=== PATIENT | female | born 1960 | race Caucasian/White ===

== ENCOUNTER 2019-08-30 16:44 | Emergency (ER) | payer MEDICARE, SELFPAY | END 2019-08-30 18:26 | disposition left against medical advice (07) | LOC: ER 20:02 | PROVIDERS: Emergency Provider Family Medicine; Family Provider Internal Medicine | DX: Z53.21 Procedure and treatment not carried out due to patient leaving prior to being seen by health care provider (principal) | CPT/HCPCS: 99281 ==

== ENCOUNTER 2019-10-23 08:43 | Emergency (ER) | payer MEDICARE, SELFPAY ==
[2019-10-23 08:47] VITALS: BP 145/91; PULSE 80; RESP 18; TEMP 36.8; O2SAT 90; BMI 25.8
--- NOTE | 2019-10-23 09:03 | XR_ITS ---
WS: [id number] XR chest 1V portable [id number] REASON FOR EXAM: sob FINDINGS: Hyper aerated lungs are seen bilaterally. The heart is not enlarged There are scattered granulomas seen. No definite pneumonia, pleural effusion, pulmonary edema, or mass effect. XR/XR chest 1V portable [id number] IMPRESSION: Chronic obstructive pulmonary disease.
--- NOTE | 2019-10-23 09:03 | W.ED.SOB ---
HPI - SOB/Dyspnea General: Chief Complaint: Shortness of Breath/Dyspnea Stated Complaint: SOB Time Seen by Provider: 10/23/19 09:02 History of Present Illness: HPI Narrative: Patient is a 59-year-old female comes to the ED with shortness of breath. Patient has a PMH of hypertension and also has been smoking cigarettes for 40 years. Patient was seen by her PCP on October 20 and was put on prednisone and doxycycline and diagnosed with bronchitis. She is still taking her prednisone and doxycycline and states last night she started feeling an increase in shortness of breath. She is complaining of a productive cough with sputum color being yellow and sometimes clear. She also states she had a objective fever last night. Patient also has an inhaler (Xopenex) that she uses as needed. Associated symptoms: Reports fever(s); Deny abdominal pain, chest pain, nausea, orthopnea, palpitations or vomiting Review of Systems Const: Reports: fever; Denies: chills or fatigue Eyes: Denies: change in vision or eye discomfort ENMT: Denies: throat pain, painful swallowing, nasal discharge or nasal congestion Card: Denies: chest pain, palpitations, edema, swelling of feet/ankles, shortness of breath on exertion or shortness of breath when lying down Resp: Reports: shortness of breath and productive cough; Denies: non-productive cough GI: Denies: abdominal pain, nausea, vomiting, diarrhea, constipation or blood in stool : Denies: flank pain, painful urination or blood in urine Musc: Denies: neck pain, back pain or extremity swelling Skin/Breast: Denies: rash or new lesion Neuro: Denies: headache, numbness in extremities or weakness in extremities [facility], [facility] ED PFSH: Social History Smoking and tobacco status: current every day smoker Physical Exam Const: COMMON NORMALS: oriented x3 HENMT: COMMON NORMALS: normocephalic HEAD & SCALP: normocephalic MOUTH: oral and palatal mucosa normal THROAT: posterior oropharynx normal and uvula midline Neck/C-Spine: COMMON NORMALS: supple GENERAL: Yes normal visual inspection Resp: COMMON NORMALS: normal respiratory effort, no retractions and no use of accessory muscles AUSCULTATION: diminished lung sounds (bases) bilateral Cardio: COMMON NORMALS: regular rate, regular rhythm, S1 normal heart sound, S2 normal heart sound, no gallops, no clicks, no murmurs and peripheral pulses 2+ throughout RATE: regular rate RHYTHM: regular rhythm HEART SOUNDS: S1 normal and S2 normal PERIPHERAL PULSES: pulses 2+ throughout GI: COMMON NORMALS: normal to inspection, nondistended, normoactive bowel sounds, soft to palpation, non-tender and no masses PALPATION: Yes soft : COMMON NORMALS: Yes no CVA tenderness BLADDER/KIDNEY EXAM: Yes no CVA tenderness Back/Pelvis: COMMON NORMALS: no CVA tenderness Extremity: COMMON NORMALS: normal to inspection Neuro: COMMON NORMALS: oriented x3 and moves all extremities Skin: COMMON NORMALS: no rashes or lesions noted GENERAL SKIN EXAM: no rashes or lesions noted and dry skin Course ED course: I discussed with patient about the possibility of patient having COPD. I told her to continue taking her antibiotic and prednisone as prescribed. I told her to follow-up with her PCP in 3 days for reevaluation to discuss COPD medication management. I discussed with her that O2 sat goal is 88-92% for COPD patient. I also discussed with patient the importance of her quitting smoking. I told her to return to the ED if symptoms worsen. Patient understood and agreed with plan. I discussed plan with Dr. Javier. Vital Signs: Vital signs: Vital Signs Temperature 98.3 F 10/23/19 08:47 Pulse Rate 70 10/23/19 12:49 Respiratory Rate 18 10/23/19 12:49 Blood Pressure 145/87 10/23/19 12:49 Pulse Oximetry 87 L 10/23/19 12:49 MDM - SOB/Dyspnea Lab Data: Attestation: I reviewed the patient's lab results. Labs: Lab Results 10/23/19 10/23/19 10/23/19 Range/Units 09:25 09:25 09:25 WBC 5.6 (4.0-10.0) 10^3/ uL RBC 4.73 (4.1-5.3) 10^6/u L Hgb 13.6 (11.5-15.3) g/dL Hct 42.2 (37.0-47.0) % MCV 89.2 (81-99) fL MCH 28.8 (28.0-34.0) pg MCHC 32.2 (30.0-36.0) g/dL RDW 13.3 (12.1-15.1) % Plt Count 179 (130-400) 10^3/c mm MPV 10.2 (7.4-10.4) fL Neut % (Auto) 58.9 % Lymph % (Auto) 23.3 % Ellis % (Auto) 17.4 % Eos % (Auto) 0.0 % Baso % (Auto) 0.2 % Neut # (Auto) 3.3 (1.8-7.7) 10^3/u L Lymph # (Auto) 1.3 (0.8-4.8) 10^3/u L Ellis # (Auto) 1.0 H (0.2-0.9) 10^3/u L Eos # (Auto) 0.0 (0.0-0.8) 10^3/u L Baso # (Auto) 0.0 (0.0-0.1) 10^3/u L Nucleated RBC % (a uto) 0 % Nucleated RBCs # 0.0 /100WBC Sodium 136 (136-145) mmol/L Potassium 3.8 (3.5-5.1) mmol/L Chloride 97 L (98-107) mmol/L Carbon Dioxide 26 (22-29) mmol/L Anion Gap 16.8 (5-19) BUN 12 (6-20) mg/dL Creatinine 0.6 (0.5-0.9) mg/dL GFR Calculation 103.0 (90-130) mL/min Glucose 96 (65-115) mg/dL Calcium 9.4 (8.5-10.5) mg/dL Total Bilirubin 0.3 (0.15-1.2) mg/dL AST 14 (0-32) U/L ALT < 5 (0-33) U/L Alkaline Phosphata se 52 (35-105) IU/L Troponin T Baselin e 6 (0-10) ng/mL Troponin T [address] [place] (0-10) ng/mL Delta Troponin T (0-10) ABS# Total Protein 6.6 (6.6-8.7) g/dL Albumin 4.2 (3.5-5.2) g/dL Globulin 2.4 (1.3-4.6) g/dL 10/23/19 Range/Units 11:10 WBC (4.0-10.0) 10^3/ uL RBC (4.1-5.3) 10^6/u L Hgb (11.5-15.3) g/dL Hct (37.0-47.0) % MCV (81-99) fL MCH (28.0-34.0) pg MCHC (30.0-36.0) g/dL RDW (12.1-15.1) % Plt Count (130-400) 10^3/c mm MPV (7.4-10.4) fL Neut % (Auto) % Lymph % (Auto) % Ellis % (Auto) % Eos % (Auto) % Baso % (Auto) % Neut # (Auto) (1.8-7.7) 10^3/u L Lymph # (Auto) (0.8-4.8) 10^3/u L Ellis # (Auto) (0.2-0.9) 10^3/u L Eos # (Auto) (0.0-0.8) 10^3/u L Baso # (Auto) (0.0-0.1) 10^3/u L Nucleated RBC % (a uto) % Nucleated RBCs # /100WBC Sodium (136-145) mmol/L Potassium (3.5-5.1) mmol/L Chloride (98-107) mmol/L Carbon Dioxide (22-29) mmol/L Anion Gap (5-19) BUN (6-20) mg/dL Creatinine (0.5-0.9) mg/dL GFR Calculation (90-130) mL/min Glucose (65-115) mg/dL Calcium (8.5-10.5) mg/dL Total Bilirubin (0.15-1.2) mg/dL AST (0-32) U/L ALT (0-33) U/L Alkaline Phosphata se (35-105) IU/L Troponin T Baselin e (0-10) ng/mL Troponin T [address] [place] 6.16 (0-10) ng/mL Delta Troponin T 0.16 (0-10) ABS# Total Protein (6.6-8.7) g/dL Albumin (3.5-5.2) g/dL Globulin (1.3-4.6) g/dL Imaging Data^: CXR: Attestation: I personally reviewed and interpreted this imaging study as follows: Radiologist's impression: [address] [address] XRay Report Signed Patient: Clare Campos Unit #: [id number] : 1960 Age/Sex: 59 / F ADM Date: 10/23/19 Loc: ER Room/Bed: Attending Dr: Ordering Provider/Ordering MD: Miguel Chaudhry Date of Service: 10/23/19 Procedure(s): XR chest 1V portable [id number] Accession Number(s): [id number] Report Number: [id number] WS: [id number] XR chest 1V portable [id number] REASON FOR EXAM: sob FINDINGS: Hyper aerated lungs are seen bilaterally. The heart is not enlarged There are scattered granulomas seen. No definite pneumonia, pleural effusion, pulmonary edema, or mass effect. XR/XR chest 1V portable [id number] IMPRESSION: Chronic obstructive pulmonary disease. Dictated By: Neto Pete DO Signed By: Neto Pete DO Signed Date/Time: 10/23/19913 DD/ 2 EKG Data^: EKG 1: Attestation: I personally reviewed and interpreted this EKG as follows: EKG Interpretation Date: 10/23/19 Interpretation: Normal sinus rhythm, 85 beats per minute, no ST segment elevation or depression seen. P waves present. Computer Generated Interpretation: Normal sinus rhythm 85 bpm Discharge Plan Discharge Patient Disposition: Home, Self-Care Clinical Impression: Dyspnea Qualifiers: Dyspnea type: shortness of breath Qualified Code(s): R06.02 - Shortness of breath COPD (chronic obstructive pulmonary disease) Qualifiers: COPD type: chronic bronchitis Chronic bronchitis type: unspecified Qualified Code(s): J42 - Unspecified chronic bronchitis Condition: Stable Prescriptions: No Action prednisone 10 mg tablet See Rx Instructions .ROUTE .COMPLEX RF: 0 lisinopril 20 mg tablet 40 mg PO DAILY RF: 0 metoprolol succinate 25 mg tablet extended release 24 hr 50 mg PO DAILY RF: 0 doxycycline hyclate 100 mg tablet 100 mg PO BID RF: 0 Xopenex HFA 45 mcg/actuation HFA aerosol inhaler 2 puff INHALATION Q4H PRN (Reason: Shortness Of Breath) RF: 0 Calcium 500 + D 500 mg(1,250mg) -200 unit Tablet 1 tab PO DAILY RF: 0 potassium gluconate 600 mg (99 mg) Tablet 600 mg PO DAILY RF: 0 [place]-3 350 mg-235 mg- 90 mg-597 mg Capsule,Delayed Release(Dr/Ec) 1 cap PO DAILY RF: 0 Vitamin C 1 tab PO DAILY RF: 0 Discharge Orders: Discharge Order (Routine); Ordered 10/23/19 Ordered By: Miguel Chaudhry Referrals: Hugo Paulson MD [Family Provider] - Discharge Diet: Regular Discharge Activity: Increase activity as tolerated Patient Instructions: Chronic Obstructive Pulmonary Disease (ED) Activity Restrictions/Additional Instructions: Follow-up with your PCP in 3 to 5 days for reevaluation. Continue taking the prescribed prednisone and doxycycline. Continue using your inhaler open (Xopenex) as needed for shortness of breath. Drink plenty fluids and stay hydrated. You can take Tylenol or ibuprofen if you have any fevers. Discussed with your PCP about possible COPD diagnosis and management. Discharge Date/Time: 10/23/19 12:49 Coding Level of Care Code ED Paving Supervisor for Rico Fwd Exam Comprehensive
--- NOTE | 2019-10-23 09:07 | ECG_ITS ---
Measurements Intervals [place] Rate: 85 P: 65 IN: 147 QRS: 43 QRSD: 95 T: 50 QT: 361 QTc: 431 SINUS RHYTHM No previous ECG available for comparison Electronically Signed On 10-23-2019 20:23:16 EXTERN by Raven Frost M.D. [email or web address]
[2019-10-23 09:40] LABS: Basophils % 0.2 %; Hematocrit 42.2 % (37.0-47.0); Hemoglobin 13.6 g/dL (11.5-15.3); Lymphocytes # 1.3 10^3/uL (0.8-4.8); Lymphocytes % 23.3 %; Mean Corpuscular HGB Conc 32.2 g/dL (30.0-36.0); Mean Corpuscular Hemoglobin 28.8 pg (28.0-34.0); Mean Corpuscular Volume 89.2 fL (81-99); Mean Platelet Volume 10.2 fL (7.4-10.4); Monocytes % 17.4 %; Neutrophils # 3.3 10^3/uL (1.8-7.7); Neutrophils % 58.9 %; Nucleated Red Blood Cells % 0 %; Platelet Count 179 10^3/cmm (130-400); Red Blood Count 4.73 10^6/uL (4.1-5.3); Red Cell Distribution Width 13.3 % (12.1-15.1); White Blood Count 5.6 10^3/uL (4.0-10.0)
[2019-10-23 09:48] LABS: Alanine Aminotransferase < 5 U/L (0-33); Albumin Level 4.2 g/dL (3.5-5.2); Alkaline Phosphatase 52 IU/L (35-105); Anion Gap 16.8 (5-19); Aspartate Amino Transferase 14 U/L (0-32); Blood Urea Nitrogen 12 mg/dL (6-20); Calcium 9.4 mg/dL (8.5-10.5); Carbon Dioxide 26 mmol/L (22-29); Chloride 97 mmol/L (98-107); Globulin 2.4 g/dL (1.3-4.6); Glucose 96 mg/dL (65-115); Potassium 3.8 mmol/L (3.5-5.1); Sodium 136 mmol/L (136-145); Total Bilirubin 0.3 mg/dL (0.15-1.2); Total Protein 6.6 g/dL (6.6-8.7)
[2019-10-23 09:50] LABS: Troponin(5th) Baseline 6 ng/mL (0-10)
[2019-10-23] MEDS: ipratropium-albuterol 3 mL Neb INHALATION (11:00)
--- NOTE | 2019-10-23 11:07 | ECG_ITS ---
Measurements Intervals [place] Rate: 82 P: 77 MO: 146 QRS: 58 QRSD: 89 T: 56 QT: 366 QTc: 430 SINUS RHYTHM INTERPRETATION BASED ON A DEFAULT AGE OF 40 YEARS No previous ECG available for comparison Electronically Signed On 10-23-2019 20:30:08 PHP CONSULTANT by Raven Frost M.D. [email or web address]
--- NOTE | 2019-10-23 11:07 | PC.NURSE ---
Patient requesting to ambulate to restroom.
--- NOTE | 2019-10-23 11:16 | PC.NURSE ---
PHYSICAL ASSESSMENT Chief Complaint: Shortness of breath. Eyes burning HX: Shortness of breath that started 1 week ago. Went to PCP who prescribed, oral antibiotics, oral steroids and inhalers. Patient reports she was feeling better until this morning when her symptoms became suddenly worse. Additionally, she reports being thirsty. GENERAL / NEURO / PSYCH: Alert. Oriented X 4. She appears uncomfortable. JOEY COMA SCORE: 15- eyes open spontaneously (4); best verbal response- oriented x 4 (5); best motor response- obeys commands (6). --12:08 TIARA Teixeira: No facial asymmetry noted. Mucous membranes are pink. RESPIRATORY: Chest nontender. Breath sounds within normal limits. CVS: Capillary refill less than 2 seconds. Pulses within normal limits. GI / : Abdomen soft and nontender and normal bowel sounds. SKIN: Skin intact. Skin is warm and dry. Normal skin turgor. -
[2019-10-23 11:20] VITALS: BP 139/86; PULSE 70; RESP 18; O2SAT 89
[2019-10-23 11:28] LABS: Troponin 5 2HR 6.16 ng/mL (0-10); Troponin 5 2HR Delta 0.16 ABS# (0-10)
[2019-10-23 12:49] VITALS: BP 145/87; PULSE 70; RESP 18; O2SAT 87
== END 2019-10-23 12:49 | disposition home or self-care (01) ==
PROVIDERS: Emergency Provider Physician Assistant; Family Provider Internal Medicine
DX: J44.9 Chronic obstructive pulmonary disease, unspecified (principal); I10 Essential (primary) hypertension; F17.210 Nicotine dependence, cigarettes, uncomplicated
CPT/HCPCS: 36415; 71045; 80053; 84484; 85025; 93005; 99282; 99283

== ENCOUNTER 2019-10-27 10:54 | Outpatient (CLI) | payer MEDICARE, SELFPAY ==
--- NOTE | 2019-10-27 10:57 | MM_ITS ---
WS: [id number] BILATERAL DIGITAL SCREENING MAMMOGRAM WITH CAD CLINICAL INFORMATION: SCREENING HISTORY: Screening mammogram. No current complaints. COMPARISON: September 26, 2018 TECHNIQUE: Bilateral CC and MLO views. FINDINGS: Fatty-replaced breasts bilaterally. Lucent centered calcification right breast No suspicious focal ma ss, asymmetry, calcifications, or architectural distortion. No evidence of malignancy. MM/[place] [id number] IMPRESSION: BI-RADS: 2-Benign FOLLOW UP: 1 Year Follow-up Recommend return to annual screening mammography.
== END 2019-10-27 10:55 | disposition home or self-care (01) ==
LOC: RADSHAW 10:54
PROVIDERS: Family Provider Internal Medicine; PCP Family Medicine; Visit Provider Family Medicine
DX: Z12.31 Encounter for screening mammogram for malignant neoplasm of breast (principal)
CPT/HCPCS: 77067

== ENCOUNTER 2019-11-14 07:17 | Outpatient (CLI) | payer MEDICARE, SELFPAY ==
--- NOTE | 2019-11-14 07:24 | US_ITS ---
WS: [id number] ULTRASOUND ABDOMEN LIMITED CLINICAL INFORMATION: RUQ PAIN COMPARISON: None. FINDINGS: Liver Size: Normal. Craniocaudal length: 12.0 cm. Echogenicity: Normal. Surface nodularity: None. Mass (size and location): None. Bile ducts Intrahepatic ducts: Normal. Common bile duct diameter: 0.3 cm. Gallbladder Normal. Gallstones: None. Gallbladder sludge: None. Gallbladder wall thickening: None. Pericholecystic fluid: None. Sonographic Pete sign: Absent. Pancreas Normal as visualized. Right kidney: Normal. Hydronephrosis: None. Size: 7.9 cm x 4.3 cm x 3.4 cm. Abdominal aorta and IVC Visualized portions are normal. Ascites: None. US/US gall bladder [id number] IMPRESSION: Normal abdominal ultrasound
== END 2019-11-14 07:18 | disposition home or self-care (01) ==
PROVIDERS: Family Provider Family Medicine; PCP Family Medicine; Visit Provider Surgery
DX: R10.11 Right upper quadrant pain (principal); R11.0 Nausea
CPT/HCPCS: 76705

== ENCOUNTER → 2021-03-28 16:09 | Outpatient (BNVA) | payer MEDICARE, SELFPAY | PROVIDERS: PCP Family Medicine; Visit Provider Surgery | DX: Z20.822 Contact with and (suspected) exposure to COVID-19 (principal) | CPT/HCPCS: 87635 ==

== ENCOUNTER 2021-04-02 07:07 | Day surgery (SDC) | payer MEDICARE, SELFPAY ==
[2021-04-01 14:08] VITALS: BMI 25.8
[2021-04-02] VITALS (12 sets, daily range): BP systolic 130–219; BP diastolic 66–99; PULSE 52–77; RESP 13–19; TEMP 36.2–36.6; O2SAT 91–98
[2021-04-02] MEDS: sodium chloride 0.9% 1,000 ML 30 ML IV (07:35)
--- NOTE | 2021-04-02 07:39 | P.HP_ITS ---
Same Day Surgery H&P Indication for Procedure/HPI DATE OF PROCEDURE: April 02, 2021 CHIEF COMPLAINT/INDICATIONFOR SURGICAL PROCEDURE: EGD/cholecystectomy PREOP DIAGNOSIS: Left upper quadrant pain, postprandial right upper quadrant pain PLANNED PROCEDRUE: Operation Date: 04/02/21 08:15 Proposed Procedures p Laparoscopic Cholecystectomy 14023 73611 r10.9(Not Applicable) - Andrei Solis MD s EGD(Not Applicable) - Andrei Solis MD Medications/Allergies* Home Medications Medication Instructions Recorded Confirmed Type calcium carbonate-vitamin D3 1 tab PO DAILY 10/23/19 04/02/21 History [Calcium 500 + D] levalbuterol tartrate [Xopenex HFA] 2 puff INHALATION Q4H PRN 10/23/19 04/02/21 History lisinopril 40 mg PO DAILY 10/23/19 04/02/21 History metoprolol succinate 50 mg PO DAILY 10/23/19 04/02/21 History omega 3-ptt-kvr-fish oil [[place]-3] 1 cap PO DAILY 10/23/19 04/02/21 History potassium gluconate 600 mg PO DAILY 10/23/19 04/02/21 History ascorbic acid (vitamin C) [Vitamin 250 mg PO DAILY 04/01/21 04/02/21 History C] selenium 25 mcg PO DAILY 04/01/21 04/02/21 History zinc 10 mg PO DAILY 04/01/21 04/02/21 History Allergies/Adverse Reactions Allergy/AdvReac Type Severity Reaction Status Date / Time NSAIDS (Non-Steroidal AdvReac upset Verified 03/03/21 11:28 Anti-Inflamma stomach Pertinent History/Comorbid Conditions* Medical History (Updated 03/03/21 @ 11:45 by Andrei Solis MD) Hypertension Surgical History (Updated 03/03/21 @ 11:45 by Andrei Solis MD) History of 2 sections History of colonoscopy History of ventral hernia repair Family History (Updated 03/03/21 @ 11:30 by Elena Johnson, KEITH) Denies family history of Anesthesia complication Bleeding disorder Social History Smoking and tobacco status: never smoked Pertinent Exam Findings alert, oriented x 3 and regular rate & rhythm Recommendations Surgery/Procedure today Coding Level of Care Code 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
--- NOTE | 2021-04-02 07:40 | ANES.PREANE2 ---
Pre-Anesthetic Assessment Pre-Anesthetic Assessment: Height/Weight: Height 1.6 m Weight 66.224 kg Pulse Resp BP Pulse Ox 72 18 148/92 95 04/02/21 07:23 04/02/21 07:23 04/02/21 07:23 04/02/21 07:23 Preop Diagnosis: Left upper quadrant pain, postprandial right upper quadrant pain Proposed Procedure: Operation Date: 04/02/21 08:15 Proposed Procedures p Laparoscopic Cholecystectomy 14364 15033 r10.9(Not Applicable) - Andrei Solis MD s EGD(Not Applicable) - Andrei Solis MD Was Beta Dami taken within 24 hours: Yes Was Clonidine taken within 24 hours: N/A Last intake: Intake Last Liquid Date 04/01/21 Last Liquid Time 20:00 Last Solid Date 04/01/21 Last Solid Time 20:00 Social: Social History: Tobacco and No alcohol Exam: Pre-Anes Outpt Exam: alert, oriented x 3 and regular rate & rhythm Airway: Submandibular: WNL Cervical ROM: WNL MP: 2 Dentition: False Pulmonary: Pulmonary: COPD and SOB CV/HEM: CV/HEM: HTN Anesthetic Plan: ASA status: 3 Anesthesia: General Risk of > 500 ml blood loss (7ml/kg in children): No PFSH Anesthesia PFSH: Medical History Hypertension Surgical History History of 2 sections History of colonoscopy History of ventral hernia repair Family History Denies family history of Anesthesia complication Bleeding disorder Social History Smoking and tobacco status: never smoked Data Anesthesia Cardiac Studies: No Data to Display
--- NOTE | 2021-04-02 08:40 | PM.OP ---
Operative Report Date of procedure: April 02, 2021 Pre-op Diagnosis: Left upper quadrant pain Chronic cholecystitis Post-op Findings: Normal EGD Chronic cholecystitis Procedure Done: Esophagogastroduodenoscopy without biopsy Laparoscopic cholecystectomy Specimens removed/disposition: Gallbladder Surgeon: Andrei Solis Anesthesia: General Condition: stable Disposition: PACU Procedure: The patient was taken to the operating room and intubated under general anesthesia. A gastroscope was introduced and advanced up to second portion of the duodenum and slowly withdrawn. Duodenum second portion: Normal Duodenal bulb: Normal Stomach Fundus: Normal body: Normal Antrum: Normal Pylorus: Normal Esophagus GE junction: Normal at 40 cm Rest of esophagus: Normal After the antibiotic had been administered, the abdomen was prepped and draped in a sterile manner. Using a #15 blade, a 1 centimeter infraumbilical curvilinear incision was made and using an open Natasha technique the peritoneal cavity was entered. A 10 millimeter port was placed and 15 millimeters of pneumoperitoneum was created. A 10 millimeter, 30 degrees scope was then introduced. Three 5 millimeter ports were placed in the epigastric, midclavicular and the anterior axillary line two fingerbreadths below the costal margin on the right side under the direct visualization. Ratcheted forceps were introduced into the lateral most port and was used to retract the fundus of the gallbladder cephalad and using forceps the infundibulum of the gallbladder was retracted laterally. Using L-hook cautery the peritoneum overlying the Calot's triangle was opened medially and laterally until the cystic duct and the cystic artery were skeletonized. Dissection was carried along the body of the gallbladder and after ensuring critical view of safety, 4 clips applied on the cystic duct and 3 clips applied on the cystic artery and cut leaving, 3 clips on the remaining portion of the duct and 2 clips on the remaining portion of the artery. The rest of the gallbladder was dissected off the liver using L-hook cautery. There was no bleeding or bile leaking noted from the gallbladder fossa and the clips appeared to be in place. An EndoCatch bag was introduced to remove the gallbladder. All the ports were removed under direct visualization and there was no bleeding noted from the port sites. The fascia of the umbilicus was closed using [id number] 0 Vicryl sutures and the subcutaneous tissue was approximated using 3-0 Vicryl sutures. The skin at all four ports were closed using 4-0 Monocryl and Dermabond. A total of 10 millimeters of 0.5% Marcaine was infiltrated around the port sites. The patient was stable throughout the procedure.
[2021-04-02] MEDS: fentaNYL 50 mcg/mL INJ 2mL IVP ×2 (09:00→09:09)
[2021-04-02] MEDS: diphenhydrAMINE 50 mg/mL SDV 1mL 12.5 MG IVP (09:05)
[2021-04-02] MEDS: ondansetron 2 mg/ML SDV 2 mL 4 MG IVP ×2 (09:06→10:07)
--- NOTE | 2021-04-02 11:04 | SUR.PHASEII ---
moderate relief of nausea.
--- NOTE | 2021-04-02 15:41 | ANE.PACU2 ---
Inpatient post-anesthesia follow up: Airway intact: Yes Vital signs: Temperature 97.8 F Pulse Rate 62 Respiratory Rate 18 Blood Pressure 155/89 Pulse Oximetry 95 Oxygen Delivery Me thod Room Air Oxygen Flow Rate 3 Fraction of Inspir ed Oxygen Hydration adequate: Yes Nausea and vomiting: No Pain level: 2 Mental status: Baseline
== END 2021-04-02 13:35 | disposition home or self-care (01) ==
PROVIDERS: PCP Family Medicine; Visit Provider Surgery
PROC: 0FT44ZZ Resection of Gallbladder, Percutaneous Endoscopic Approach (ICD-10-PCS; CPT 47562; principal; 2021-04-02 08:05)
PROC: 0DJ08ZZ Inspection of Upper Intestinal Tract, Via Natural or Artificial Opening Endoscopic (ICD-10-PCS; CPT 43235; 2021-04-02 08:05)
DX: K81.1 Chronic cholecystitis (principal); J44.9 Chronic obstructive pulmonary disease, unspecified; I10 Essential (primary) hypertension
CPT/HCPCS: 43235; 47562; 88304; 96365; 96374; J0690; J1100; J1200; J2370; J2405; J2704; J2710; J3010; J3490; J7030

== ENCOUNTER → 2021-06-27 00:01 | Outpatient (BNVA) | payer MEDICARE, SELFPAY | PROVIDERS: PCP Family Medicine; Visit Provider Orthopaedic Surgery | DX: Z01.818 Encounter for other preprocedural examination (principal); Z20.822 Contact with and (suspected) exposure to COVID-19 | CPT/HCPCS: 87635 ==

== ENCOUNTER 2021-07-03 10:47 | Day surgery (SDC) | payer MEDICARE, SELFPAY ==
[2021-07-02 11:57] VITALS: BMI 26.5
[2021-07-03] VITALS (7 sets, daily range): BP systolic 138–226; BP diastolic 76–106; PULSE 64–106; RESP 16–20; TEMP 36.1–36.8; O2SAT 91–95
[2021-07-03] MEDS: sodium chloride 0.9% 1,000 ML 30 ML IV (11:33)
[2021-07-03] MEDS: ipratropium-albuterol 3 mL Neb INHALATION (11:45)
--- NOTE | 2021-07-03 11:49 | ANES.PREANE2 ---
Pre-Anesthetic Assessment Pre-Anesthetic Assessment: Height/Weight: Height 1.57 m Weight 65.771 kg Temp Pulse Resp BP Pulse Ox 98.3 F 68 18 168/106 94 07/03/21 11:02 07/03/21 11:02 07/03/21 11:02 07/03/21 11:02 07/03/21 11:02 Preop Diagnosis: Mass left arm Proposed Procedure: Operation Date: 07/03/21 12:05 Proposed Procedures p Excision Mass left forearm 67352 M71.9(Left) - Reinaldo Lucero MD Was Beta Dami taken within 24 hours: Yes Was Clonidine taken within 24 hours: N/A Last intake: Intake Last Liquid Date 07/02/21 Last Liquid Time 22:00 Last Solid Date 07/02/21 Last Solid Time 22:00 Social: Social History: Tobacco Comment: Smoked today. Exam: Pre-Anes Outpt Exam: alert, oriented x 3 and regular rate & rhythm Additional Exam Findings (including area of procedure): Expiratory wheeze. Airway: Submandibular: WNL Cervical ROM: WNL MP: 2 Dentition: False Pulmonary: Pulmonary: COPD, Cough and SOB CV/HEM: CV/HEM: HTN Neuropsych: Neuropsych: Anxiety Anesthetic Plan: ASA status: 3 Anesthesia: Anesthesia Evaluation, General and MAC Risk of > 500 ml blood loss (7ml/kg in children): No Meds/Allergies Current Medications: Current Medications Generic Name Dose Route Start Last Admin Trade Name Freq PRN Reason Stop Dose Admin Sodium Chloride 1,000 mls @ 30 ml s/hr 07/03/21 11:00 07/03/21 11:33 Sodium Chloride 0.9% IV 07/04/21 10:59 30 mls/hr .Q24H KORTNEY Administration PFSH Anesthesia PFSH: Medical History Hypertension Surgical History H/O esophagogastroduodenoscopy (04/02/21) History of 2 sections History of colonoscopy History of ventral hernia repair Status post laparoscopic cholecystectomy (04/02/21) Family History Denies family history of Anesthesia complication Bleeding disorder Data Anesthesia Cardiac Studies: No Data to Display
--- NOTE | 2021-07-03 13:10 | W.PM.OPSFHP ---
Same Day Surgery H&P Indication for Procedure/HPI DATE OF PROCEDURE: July 03, 2021 CHIEF COMPLAINT/INDICATIONFOR SURGICAL PROCEDURE: Mass left elbow here for excision PREOP DIAGNOSIS: Mass left arm PLANNED PROCEDRUE: Operation Date: 07/03/21 12:05 Proposed Procedures p Excision Mass left forearm 26045 M71.9(Left) - Reinaldo Lucero MD Medications/Allergies* Home Medications Medication Instructions Recorded Confirmed Type [place]-3 1 cap PO DAILY 10/23/19 07/03/21 History calcium carbonate-vitamin D3 1 tab PO DAILY 10/23/19 07/03/21 History [Calcium 500 + D] levalbuterol tartrate [Xopenex HFA] 2 puff INHALATION Q4H PRN 10/23/19 07/03/21 History lisinopril 40 mg PO DAILY 10/23/19 07/03/21 History metoprolol succinate 50 mg PO DAILY 10/23/19 07/03/21 History potassium gluconate 600 mg PO DAILY 10/23/19 07/03/21 History ascorbic acid (vitamin C) [Vitamin 250 mg PO DAILY 04/01/21 07/03/21 History C] selenium 25 mcg PO DAILY 04/01/21 07/03/21 History zinc 10 mg PO DAILY 04/01/21 07/03/21 History Allergies/Adverse Reactions Allergy/AdvReac Type Severity Reaction Status Date / Time NSAIDS (Non-Steroidal AdvReac upset Verified 07/03/21 10:56 Anti-Inflamma stomach Current Medications: Generic Name Dose Route Start Last Admin Trade Name Freq PRN Reason Stop Dose Admin Sodium Chloride 1,000 mls @ 30 mls/hr 07/03/21 11:00 07/03/21 11:33 Sodium Chloride 0.9% IV 07/04/21 10:59 30 mls/hr .Q24H KORTNEY Administration Pertinent History/Comorbid Conditions* Medical History (Updated 04/29/21 @ 11:42 by Reinaldo Lucero MD) Hypertension Surgical History (Updated 05/30/21 @ 10:33 by Andrei Solis MD) H/O esophagogastroduodenoscopy (04/02/21) History of 2 sections History of colonoscopy History of ventral hernia repair Status post laparoscopic cholecystectomy (04/02/21) Family History (Updated 03/03/21 @ 11:30 by Elena Pace, RN) Denies family history of Anesthesia complication Bleeding disorder Pertinent Exam Findings alert, oriented x 3, clear to auscultation bilaterally, regular rate & rhythm and operative site marked Recommendations Surgery/Procedure today Coding Level of Care Code 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
--- NOTE | 2021-07-03 14:07 | P.OP_ITS ---
Operative Report Date of procedure: July 03, 2021 Pre-op Diagnosis: Mass left arm Post-op diagnosis: same Post-op Findings: Same Procedure Done: Excision deep mass left forearm Pathology: other Pathology: Cystic mass was sent for pathology Anesthesia: General Estimated blood loss (mL): 10 Tourniquet time (min): 11 Findings: The patient had a loculated cystic mass full of caseous fluid approxim ately 4 x 4 cm in diameter. It was adherent to the fascia of the proximal dorsal radial forearm musculature. Condition: stable Disposition: PACU Procedure: The patient was taken to the operating room and given a general anesthesia. She is prepped and draped in the supine position with her left elbow flexed on arm table. A tourniquet was inflated 250 mmHg. A 4 cm long incision was made dorsally over the mass. Dissection was carried down to the cystic capsule. It was penetrated producing large amounts of a white caseous material. Utilizing scissors the mass was sequentially dissected free from the deep subcutaneous tissue and fascia over the dorsal radial extensor musculature. The wound was irrigated with saline. Deep tissues were closed with 2-0 Vicryl. Skin was closed with 3-0 Prolene. Sterile compressive dressings were applied. The patient was placed in a sling, extubated, and taken recovery in stable condition.
[2021-07-03] MEDS: ondansetron 2 mg/ML SDV 2 mL 4 MG IVP ×2 (15:00→15:18)
--- NOTE | 2021-07-03 15:35 | ANE.PACU2 ---
Inpatient post-anesthesia follow up: Airway intact: Yes Vital signs: Temperature 97.7 F Pulse Rate 80 Respiratory Rate 17 Blood Pressure 149/76 Pulse Oximetry 94 Oxygen Delivery Me thod Room Air Oxygen Flow Rate Fraction of Inspir ed Oxygen Hydration adequate: Yes Nausea and vomiting: No Pain level: 2 Mental status: Baseline
== END 2021-07-03 15:45 | disposition home or self-care (01) ==
PROVIDERS: PCP Family Medicine; Visit Provider Orthopaedic Surgery
PROC: (CPT 11401; principal; 2021-07-03 12:05)
DX: R22.32 Localized swelling, mass and lump, left upper limb (principal); I10 Essential (primary) hypertension; F17.200 Nicotine dependence, unspecified, uncomplicated
CPT/HCPCS: 11401; 88309; 94640; 96374; 96375; J0690; J1100; J2405; J2704; J3010; J3490; J7030

== ENCOUNTER 2021-12-31 10:01 | Outpatient (CLI) | payer MEDICARE, SELFPAY ==
--- NOTE | 2021-12-31 10:13 | MM_ITS ---
WS: [id number] BILATERAL SCREENING DIGITAL BREAST TOMOSYNTHESIS MAMMOGRAM WITH CAD HISTORY: SCREENING COMPARISON: 10/27/2019, 09/26/2018 Bilateral CC and MLO views with tomosynthesis and synthetic mammography submitted. Computer aided det ection analyzed. Breast composition: There are scattered areas of fibroglandular density. No suspicious masses, microc alcifications or architectural distortion. Benign calcifications in each breast. MM/[place] [id number] IMPRESSION: BI-RADS: 2-Benign FOLLOW UP: 1 Year Follow-up
== END 2021-12-31 10:02 | disposition home or self-care (01) ==
LOC: RAD 10:06
PROVIDERS: PCP Family Medicine; Visit Provider Family Medicine
DX: Z12.39 Encounter for other screening for malignant neoplasm of breast (principal)
CPT/HCPCS: 77063; 77067

== ENCOUNTER 2022-06-19 11:05 | Outpatient (CLI) | payer MEDICARE, MEDICAID, SELFPAY ==
--- NOTE | 2022-06-19 11:19 | XR_ITS ---
WS: [id number] Exam: XR chest 2V* [id number] Date/Time of Exam: 06/19/2022 11:27 AM Reason For Exam: CHRONIC OBSTRUCTIVE PULMONARY DISEASE Comparison 10/23/2019. The lungs are hyperinflated and clear. Normal cardiomediastinal silhouette. No pleural effusions. Sca ttered calcified granulomas. Bony structures are intact. XR/XR chest 2V* [id number] IMPRESSION: 1. Pulmonary hyperinflation which might indicate obstructive lung disease. No a cute process.
== END 2022-06-19 11:06 | disposition home or self-care (01) ==
LOC: RAD 11:09
PROVIDERS: PCP Family Medicine; Visit Provider Family Medicine
DX: J44.9 Chronic obstructive pulmonary disease, unspecified (principal)
CPT/HCPCS: 71046

== ENCOUNTER → 2022-10-14 14:02 | Outpatient (BNVA) | payer MEDICARE, SELFPAY | PROVIDERS: PCP Family Medicine; Visit Provider Orthopaedic Surgery | DX: M70.32 Other bursitis of elbow, left elbow (principal); Y93.9 Activity, unspecified | CPT/HCPCS: 20605; 99213 ==

== ENCOUNTER 2022-10-25 15:48 | Emergency (ER) | payer MEDICARE, SELFPAY ==
[2022-10-25 16:13] VITALS: BP 180/91; PULSE 80; RESP 16; TEMP 36.7; O2SAT 91; BMI 26.5
--- NOTE | 2022-10-25 16:20 | XRR_ITS ---
PROCEDURE INFORMATION: Exam: XR Chest Exam date and time: 10/25/2022 4:30 PM Age: 62 years old Clinical indication: Shortness of breath; Additional info: Short of breath, cough TECHNIQUE: Imaging protocol: Radiologic exam of the chest. Views: 2 views. COMPARISON: CR XR chest 2V* [id number] 06/19/2022 11:24 AM FINDINGS: Lungs: Left upper lobe calcified granuloma. No consolidation. Pleural spaces: Unremarkable. No pleural effusion. No pneumothorax. Heart/Mediastinum: Unremarkable. No cardiomegaly. Bones/joints: Unremarkable. XR/XR chest 2V* [id number] IMPRESSION: No acute findings.
--- NOTE | 2022-10-25 16:22 | W.ED.SOB ---
HPI - SOB/Dyspnea General: Chief Complaint: Shortness of Breath/Dyspnea Stated Complaint: sob Time Seen by Provider: 10/25/22 16:22 History of Present Illness: HPI Narrative: Ms. Campos is a 62-year-old lady with long-term history of tobaccoism (started smoking when she was 10 years old) presenting to the emergency department for shortness of breath. She reports perhaps generalized malaise starting 5 or 6 days ago and has had increased shortness of breath gradually worsening associated with cough for the past 3 days. She notes productive green sputum and worsening symptoms with exertion. She denies associated chest pain. She went to urgent care and reportedly had borderline oxygen saturation and was referred to the emergency department for further evaluation. She received steroids and a breathing treatment with some improvement. Intensity symptoms is moderate at rest and severe with exertion. No other specific changes in health, exacerbating, or alleviating factors identified. Pertinent past history: COPD Onset (ago): day(s) Timing: progressively worsening Severity: severe Exacerbating factors: lying flat, exertion, movement and coughing Relieving factors: bronchodilators Associated symptoms: Reports no associated symptoms Review of Systems General: Reports: 10 or more systems reviewed and unremarkable except in HPI and below PFSH ED PFSH: Medical History Hypertension Surgical History H/O esophagogastroduodenoscopy (04/02/21) History of 2 sections History of colonoscopy History of ventral hernia repair Status post laparoscopic cholecystectomy (04/02/21) Family History Denies family history of Anesthesia complication Bleeding disorder Physical Exam Const: COMMON NORMALS: alert GENERAL APPEARANCE: cooperative, well developed and ill appearing HENMT: COMMON NORMALS: normocephalic and atraumatic HEAD & SCALP: normocephalic and atraumatic THROAT: posterior oropharynx normal Eye: COMMON NORMALS: conjunctivae normal CONJUNCTIVA: Yes conjunctivae normal SCLERA: sclerae normal Neck/C-Spine: COMMON NORMALS: supple GENERAL: Yes trachea midline Resp: EFFORT & INSPECTION: Yes able to speak in complete sentences AUSCULTATION: wheezes (End expiratory) and diminished lung sounds Cardio: COMMON NORMALS: regular rate and regular rhythm RATE: regular rate RHYTHM: regular rhythm GI: COMMON NORMALS: Soft to palpation PALPATION: Yes Soft to palpation and No Tenderness to palpation present (GI) Extremity: GENERAL: Yes normal exam except as noted and No edema Neuro: COMMON NORMALS: moves all extremities SENSORIUM/ORIENTATION: Yes alert and No Orientation impaired Psych: COMMON NORMALS: mental status grossly normal and Normal thought process present THOUGHT PROCESS: Normal thought process present Course Vital Signs: Vital signs: Vital Signs Temperature 98.1 F 10/25/22 16:13 Pulse Rate 76 10/25/22 18:30 Respiratory Rate 16 10/25/22 18:30 Blood Pressure 180/106 10/25/22 18:30 Pulse Oximetry 91 10/25/22 18:30 Oxygen Delivery Me thod 10/25/22 17:08 MDM - SOB/Dyspnea Medical Decision Making 62-year-old lady longstanding history of tobaccoism presenting for respiratory symptoms. Still some increased work of breathing despite reported vast improvement from prehospital treatment. Patient is nontoxic. Labs with no leukocytosis, essentially unremarkable hematologic panel. Chest x-ray with no lobar consolidation or pneumothorax. Patient treated with antibiotics and additional artery treatment. She continues to feel markedly improved. I did offer admission given severity of symptoms at home however patient prefers outpatient management. Plan to treat outpatient for COPD exacerbation. The results of ED evaluation were discussed with the patient including prescriptions and/or symptomatic cares (if applicable) including appropriate and responsible use, followup plan, and return precautions. The patient verbalized understanding and felt safe for discharge. Medical Records I reviewed the patient's medical records. Lab Data I reviewed the patient's lab results. 10/25/22 16:43 10/25/22 16:43 Labs/Radiology: Radiology Impressions Chest X-Ray 10/25/22 16:20 IMPRESSION: No acute findings. Laboratory Results WBC 9.8 10^3/uL (4.0-10.0) 10/25/22 16:43 RBC 4.98 10^6/uL (4.1-5.3) 10/25/22 16:43 Hgb 14.7 g/dL (11.5-15.3) 10/25/22 16:43 Hct 47.2 % (37.0-47.0) H 10/25/22 16:43 MCV 94.8 fl (81-99) 10/25/22 16:43 MCH 29.5 pg (28.0-34.0) 10/25/22 16:43 MCHC 31.1 g/dL (30.0-36.0) 10/25/22 16:43 RDW 13.1 % (12.1-15.1) 10/25/22 16:43 Plt Count 250 10^3/cmm (130-400) 10/25/22 16:43 MPV 9.6 fL (7.4-10.4) 10/25/22 16:43 Neut % (Auto) 86.5 % 10/25/22 16:43 Lymph % (Auto) 9.7 % 10/25/22 16:43 [place] % (Auto) 2.4 % 10/25/22 16:43 Eos % (Auto) 0.5 % 10/25/22 16:43 Baso % (Auto) 0.7 % 10/25/22 16:43 Neut # (Auto) 8.49 10^3/uL (1.8-7.7) H 10/25/22 16:43 Lymph # (Auto) 1.0 10^3/uL (0.8-4.8) 10/25/22 16:43 [place] # (Auto) 0.2 10^3/uL (0.2-0.9) 10/25/22 16:43 Eos # (Auto) 0.1 10^3/uL (0.0-0.8) 10/25/22 16:43 Baso # (Auto) 0.1 10^3/uL (0.0-0.1) 10/25/22 16:43 Nucleated RBC % (auto) 0 % 10/25/22 16:43 Nucleated RBCs # 0.0 /100WBC 10/25/22 16:43 Sodium 140 mmol/L (136-145) 10/25/22 16:43 Potassium 4.0 mmol/L (3.5-5.1) 10/25/22 16:43 Chloride 102 mmol/L (98-107) 10/25/22 16:43 Carbon Dioxide 29 mmol/L (22-29) 10/25/22 16:43 Anion Gap 13.0 (5-19) 10/25/22 16:43 BUN 11 mg/dL (8-23) 10/25/22 16:43 Creatinine 0.5 mg/dL (0.5-0.9) 10/25/22 16:43 GFR Calculation 125.9 mL/min (90-130) 10/25/22 16:43 Glucose 133 mg/dL (65-115) H 10/25/22 16:43 Calculated Osmolality 291 mOsm/kg (285-295) 10/25/22 16:43 Calcium 9.2 mg/dL (8.5-10.5) 10/25/22 16:43 Total Bilirubin 0.4 mg/dL (0.15-1.2) 10/25/22 16:43 AST 13 U/L (0-32) 10/25/22 16:43 ALT < 5 U/L (0-33) 10/25/22 16:43 Alkaline Phosphatase 103 U/L (35-105) 10/25/22 16:43 Total Protein 7.2 g/dL (6.6-8.7) 10/25/22 16:43 Albumin 4.4 g/dL (3.5-5.2) 10/25/22 16:43 Globulin 2.8 g/dL (1.3-4.6) 10/25/22 16:43 Discharge Plan Discharge Patient Disposition: Home Clinical Impression: Acute exacerbation of chronic obstructive airways disease Condition: Stable Prescriptions: Continued Xopenex HFA 45 mcg/actuation HFA aerosol inhaler 2 puff INHALATION Q4H PRN (Reason: Shortness Of Breath) Qty: 15 0RF No Action montelukast 10 mg tablet 10 mg PO DAILY lisinopril 20 mg tablet 40 mg PO DAILY metoprolol succinate 25 mg tablet extended release 24 hr 50 mg PO DAILY calcium carbonate-vitamin D3 [Calcium 500 + D] 500 mg(1,250mg) -200 unit Tablet 1 tab PO DAILY potassium gluconate 600 mg (99 mg) Tablet 600 mg PO DAILY Victoria-3 350 mg-235 mg- 90 mg-597 mg Capsule,Delayed Release(Dr/Ec) 1 cap PO DAILY ascorbic acid (vitamin C) [Vitamin C] 500 mg Tablet 250 mg PO DAILY selenium 25 mcg Tablet 25 mcg PO DAILY zinc 10 mg Tablet 10 mg PO DAILY docusate sodium [Colace] 100 mg capsule 100 mg PO BID Qty: 30 0RF Discharge Orders: Discharge ED (Routine); Ordered 10/25/22 Ordered By: Jose M Johnson Referrals: Sameera Paulson MD [Primary Care Provider] - Discharge Diet: Usual diet Discharge Activity: Increase activity as tolerated Patient Instructions: How to Stop Smoking (ED), COPD (Chronic Obstructive Pulmonary Disease) (ED) Activity Restrictions/Additional Instructions: Thank you for visiting the emergency department. You were seen and evaluated for shortness of breath and cough. The most likely cause of your symptoms is exacerbation of underlying lung disease. I will prescribe steroids and antibiotics. Please also use your breathing treatment 1 treatment every 4 hours for 24 hours followed by 1 treatment every 6 hours for 24 hours followed by 1 treatment every 8 hours for 24 hours and then return to the normal schedule. Please follow-up with your primary care provider. I will message case management for pulmonology follow-up. Return to the emergency department for worsening symptoms or anything else that you are concerned about and feel needs emergency department evaluation. Coding Level of Care Code ED Director Of National Sales for Rico Rhodes
[2022-10-25 16:51] LABS: Basophils # 0.1 10^3/uL (0.0-0.1); Basophils % 0.7 %; Eosinophils # 0.1 10^3/uL (0.0-0.8); Eosinophils % 0.5 %; Hematocrit 47.2 % (37.0-47.0); Hemoglobin 14.7 g/dL (11.5-15.3); Lymphocytes % 9.7 %; Mean Corpuscular HGB Conc 31.1 g/dL (30.0-36.0); Mean Corpuscular Hemoglobin 29.5 pg (28.0-34.0); Mean Corpuscular Volume 94.8 fl (81-99); Mean Platelet Volume 9.6 fL (7.4-10.4); Monocytes # 0.2 10^3/uL (0.2-0.9); Monocytes % 2.4 %; Neutrophils # 8.49 10^3/uL (1.8-7.7); Neutrophils % 86.5 %; Nucleated Red Blood Cells % 0 %; Platelet Count 250 10^3/cmm (130-400); Red Blood Count 4.98 10^6/uL (4.1-5.3); Red Cell Distribution Width 13.1 % (12.1-15.1); White Blood Count 9.8 10^3/uL (4.0-10.0)
--- NOTE | 2022-10-25 16:53 | ECG_ITS ---
[facility] Test Date: 2022-10-25 Pat Name: Clare Campos Department: Room: Gender: Female [employer] Supervisor: : 1960 Requested By: Jose M Johnson Order Number: [id number] Dhaliwal MD: Amandeep Cotto M.D. Measurements Intervals [place] Rate: 76 P: 75 NM: 160 QRS: 69 QRSD: 85 T: 71 QT: 395 QTc: 445 Interpretive Statements SINUS RHYTHM WITH SINUS ARRHYTHMIA POSSIBLE ANTERIOR MYOCARDIAL INFARCTION , OF INDETERMINATE AGE [30 ms Q WAVE IN V3/V4, OR R < 0.2 mV IN V4] Compared to ECG 10/23/2019 11:10:30 Myocardial infarct finding now present Electronically Signed On 10-25-2022 21:24:17 PLSQL DEVELOPER by Amandeep Cotto M.D. [id number]
[2022-10-25] MEDS: albuterol 2.5 mg/3 mL Neb INHALATION (17:00)
[2022-10-25 17:08] VITALS: PULSE 72; RESP 18; O2SAT 92
[2022-10-25] MEDS: levalbuterol 1.25 mg/3 mL Neb INHALATION (17:08)
[2022-10-25 17:10] VITALS: PULSE 78
[2022-10-25 17:17] LABS: Alanine Aminotransferase < 5 U/L (0-33); Albumin Level 4.4 g/dL (3.5-5.2); Alkaline Phosphatase 103 U/L (35-105); Aspartate Amino Transferase 13 U/L (0-32); Blood Urea Nitrogen 11 mg/dL (8-23); Calcium 9.2 mg/dL (8.5-10.5); Carbon Dioxide 29 mmol/L (22-29); Chloride 102 mmol/L (98-107); Globulin 2.8 g/dL (1.3-4.6); Glomerular Filtration Rate 125.9 mL/min (90-130); Glucose 133 mg/dL (65-115); Osmolality Calculated 291 mOsm/kg (285-295); Sodium 140 mmol/L (136-145); Total Bilirubin 0.4 mg/dL (0.15-1.2); Total Protein 7.2 g/dL (6.6-8.7)
[2022-10-25 17:58] VITALS: O2SAT 90; O2SAT 92
[2022-10-25] MEDS: doxycycline 100 mg Tablet PO (18:27)
[2022-10-25 18:30] VITALS: BP 180/106; PULSE 76; RESP 16; O2SAT 91
--- NOTE | 2022-11-09 15:15 | DCPLANNER ---
Addendum entered by Brionna Ventura 02/03/23 10:53: Patient had a follow up appointment scheduled with pulmonology - patient did attend appointment. Addendum entered by Brionna Ventura 11/10/22 11:01: Patient has a follow up appointment schedule for Wednesday, February 03, 2023 at 10:[address] Gilliam at [facility]. Clinic will call patient with appointment information. Addendum entered by Brionna Ventura 11/10/22 07:54: ecommerce merchandising manager received the following message from [facility] regarding follow up appointment: Attempted to call patient. Left vm to call back. Original Note: ecommerce merchandising manager had message to schedule a follow up appointment for patient with pulmonology. ecommerce merchandising manager sent patients information to the front office staff at [facility]. Patients information will be printed and reviewed. Clinic will call patient with appointment information.
== END 2022-10-25 18:33 | disposition home or self-care (01) ==
PROVIDERS: Emergency Provider Emergency Medicine; PCP Family Medicine
DX: J44.1 Chronic obstructive pulmonary disease with (acute) exacerbation (principal); I10 Essential (primary) hypertension
CPT/HCPCS: 36415; 71046; 80053; 85025; 87070; 87077; 87205; 93005; 94640; 99285; J7613; J7614

== ENCOUNTER → 2023-02-03 10:46 | Outpatient (BNVA) | payer MEDICARE, SELFPAY | PROVIDERS: PCP Family Medicine; Visit Provider Internal Medicine Pulmonary Disease | DX: J42 Unspecified chronic bronchitis (principal); F17.200 Nicotine dependence, unspecified, uncomplicated; Z71.6 Tobacco abuse counseling | CPT/HCPCS: 99204 ==

== ENCOUNTER 2023-03-09 10:18 | Outpatient (CLI) | payer MEDICARE, SELFPAY ==
[2023-03-09 10:28] VITALS: BP 154/99
[2023-03-09 10:45] VITALS: PULSE 75; RESP 20; O2SAT 95
[2023-03-09] MEDS: albuterol 2.5 mg/3 mL Neb INHALATION (10:45)
== END 2023-03-09 10:19 | disposition home or self-care (01) ==
PROVIDERS: PCP Family Medicine; Visit Provider Internal Medicine Pulmonary Disease
DX: R06.02 Shortness of breath (principal)
CPT/HCPCS: 94060; 94618; 94726; 94729; J7613

== ENCOUNTER → 2023-04-30 10:41 | Outpatient (BNVA) | payer MEDICARE, SELFPAY | PROVIDERS: PCP Family Medicine; Visit Provider Internal Medicine Pulmonary Disease | DX: J44.9 Chronic obstructive pulmonary disease, unspecified (principal); Z12.2 Encounter for screening for malignant neoplasm of respiratory organs; Z71.6 Tobacco abuse counseling; F17.210 Nicotine dependence, cigarettes, uncomplicated | CPT/HCPCS: 99214 ==

== ENCOUNTER → 2023-05-04 10:24 | Outpatient (BNVA) | payer MEDICARE, SELFPAY | PROVIDERS: PCP Family Medicine; Referring Provider Internal Medicine Pulmonary Disease; Visit Provider Internal Medicine Pulmonary Disease | DX: J30.2 Other seasonal allergic rhinitis (principal); J44.9 Chronic obstructive pulmonary disease, unspecified; Z12.2 Encounter for screening for malignant neoplasm of respiratory organs | CPT/HCPCS: 82785; 86003 ==

== ENCOUNTER 2023-05-11 10:08 | Outpatient (CLI) | payer MEDICARE, MEDICAID, SELFPAY ==
--- NOTE | 2023-05-11 10:15 | CT_ITS ---
WS: [email or web address] LDCT LUNG CANCER SCREENING TECHNIQUE: Noncontrast CT of the chest with coronal and sagittal reformatted images. CLINICAL INFORMATION: Cancer screen COMPARISON: None. DLP: 65.39 mgy/cm DIvol: 1.[address] scans at [facility] use at least one of these dose optimization techniques: automat ed exposure control; mA and/or kV adjustment per patient size (includes targeted exams where dose is matched to clinical indication); or iterative reconstruction. FINDINGS: Mild chronic emphysematous changes. Calcified nodule LEFT upper lobe. Subsegmental atelectasis RIGHT middle lobe with air bronchograms. Tiny noncalcified subpleural nodule RIGHT middle lobe. Enlarged heterogeneous thyroid extending into the superior mediastinum. This measures approximately 3 .8 x 2.9 cm. Mass effect on the trachea at the thoracic inlet LEFT to RIGHT. No significant narrowing . Adrenal glands are normal. Normal GE junction. Normal caliber thoracic aorta. Aortic calcification. C oronary calcification. No mediastinal or hilar lymphadenopathy. No axillary lymphadenopathy. IMPRESSION: Bulky LEFT thyroid nodule extending into the anterior superior mediastinum measuring appr oximately 3.[address]/CT lung screening [id number] LUNG-RADS: 2S-Benign Appearance or Behavior with Significant Findings FOLLOW UP: 12 Month: Continue annual screening with LDCT
== END 2023-05-11 10:09 | disposition home or self-care (01) ==
PROVIDERS: PCP Family Medicine; Visit Provider Internal Medicine Pulmonary Disease
DX: F17.210 Nicotine dependence, cigarettes, uncomplicated (principal); Z12.2 Encounter for screening for malignant neoplasm of respiratory organs
CPT/HCPCS: 71271

== ENCOUNTER 2023-05-26 10:15 | Outpatient (CLI) | payer MEDICARE, MEDICAID, SELFPAY ==
--- NOTE | 2023-05-26 10:15 | US_ITS ---
WS: [id number] THYROID ULTRASOUND HISTORY: Thyroid nodule seen on lung CT COMPARISON: None available. Right lobe: 1.5 cm x 1.7 cm x 4.7 cm (w x ap x l). Volume: 6.1 cm3. Normal size and echotexture. No significant are dominant nodules are present. Left lobe: 1.8 cm x 1.8 cm x 7.4 cm (w x ap x l). Volume: 12.2 cm3. Enlarged thyroid. There is a large solid mass with central calcification involving the lower pole. Th is mass extends substernal and most recently identified on the CT of 05/11/2023. Mass measures 3.3 x 3 .5 x 6.5 cm. There is mild peripheral vascularity. This is mixed hypoechoic and hyperechoic mass. No extrathyroidal extension although the capsule of the thyroid is being stretched. Isthmus: 0.5 cm. IMPRESSION: 1. TR 4; recommend ultrasound-guided biopsy LEFT thyroid nodule. Moderately suspicious nodule. 2. Negative RIGHT thyroid.
== END 2023-05-26 10:16 | disposition home or self-care (01) ==
PROVIDERS: PCP Family Medicine; Visit Provider Internal Medicine Pulmonary Disease
DX: E04.1 Nontoxic single thyroid nodule (principal)
CPT/HCPCS: 76536

== ENCOUNTER → 2023-10-12 11:08 | Outpatient (BNVA) | payer MEDICARE, MEDICAID, SELFPAY | PROVIDERS: PCP Family Medicine; Referring Provider Family Medicine; Visit Provider Physician Assistant | DX: M70.32 Other bursitis of elbow, left elbow | CPT/HCPCS: 73080; 99203; 99213 ==

== ENCOUNTER → 2023-10-28 10:30 | Outpatient (BNVA) | payer MEDICARE, MEDICAID, SELFPAY | PROVIDERS: PCP Family Medicine; Visit Provider Nurse Practitioner Family | DX: D48.5 Neoplasm of uncertain behavior of skin (principal); L57.8 Other skin changes due to chronic exposure to nonionizing radiation; L81.4 Other melanin hyperpigmentation; Z85.828 Personal history of other malignant neoplasm of skin | CPT/HCPCS: 11102; 99213 ==

== ENCOUNTER → 2023-10-29 10:40 | Outpatient (BNVA) | payer MEDICARE, MEDICAID, SELFPAY | PROVIDERS: PCP Family Medicine; Visit Provider Internal Medicine Pulmonary Disease | DX: J44.9 Chronic obstructive pulmonary disease, unspecified (principal); J43.2 Centrilobular emphysema; Z12.2 Encounter for screening for malignant neoplasm of respiratory organs; F17.210 Nicotine dependence, cigarettes, uncomplicated | CPT/HCPCS: 99214 ==

== ENCOUNTER 2023-12-28 11:30 | Outpatient (CLI) | payer MEDICARE, MEDICAID, SELFPAY ==
--- NOTE | 2023-12-28 11:36 | MM_ITS ---
WS: [id number] SCREENING DIGITAL TOMOSYNTHESIS MAMMOGRAM WITH CAD HISTORY: SCREENING COMPARISON: 12/31/2021, 10/27/2019 Bilateral CC and MLO with tomosynthesis views submitted. Synthetic mammography reviewed. Computer aid ed detection analyzed. Breast composition: There are scattered areas of fibroglandular density. No suspicious masses, microc alcifications or architectural distortion. Benign calcifications in each breast. MM/[place] [id number] IMPRESSION: BI-RADS: 2-Benign FOLLOW UP: 1 Year Follow-up
== END 2023-12-28 11:31 | disposition home or self-care (01) ==
LOC: RAD 11:31
PROVIDERS: PCP Family Medicine; Visit Provider Family Medicine
DX: Z12.31 Encounter for screening mammogram for malignant neoplasm of breast (principal)
CPT/HCPCS: 77063; 77067

== ENCOUNTER → 2024-02-08 09:04 | Outpatient (BNVA) | payer MEDICARE, MEDICAID, SELFPAY | PROVIDERS: PCP Family Medicine; Visit Provider Dermatology | DX: C44.319 Basal cell carcinoma of skin of other parts of face (principal) | CPT/HCPCS: 13132; 17311 ==

== ENCOUNTER → 2024-03-01 14:26 | Outpatient (BNVA) | payer MEDICARE, MEDICAID, SELFPAY | PROVIDERS: PCP Family Medicine; Visit Provider Physician Assistant | DX: M25.522 Pain in left elbow (principal); M70.32 Other bursitis of elbow, left elbow | CPT/HCPCS: 73080; 99213 ==

== ENCOUNTER → 2024-04-04 09:54 | Outpatient (BNVA) | payer MEDICARE, MEDICAID, SELFPAY | PROVIDERS: PCP Family Medicine; Visit Provider Student in an Organized Health Care Education/Training Program | DX: M70.32 Other bursitis of elbow, left elbow (principal) | CPT/HCPCS: 20605; 20610; 99214 ==

== ENCOUNTER → 2024-06-15 14:05 | Outpatient (BNVA) | payer MEDICARE, MEDICAID, SELFPAY | PROVIDERS: PCP Family Medicine; Visit Provider Nurse Practitioner Family | DX: L21.8 Other seborrheic dermatitis (principal); F17.200 Nicotine dependence, unspecified, uncomplicated; L57.8 Other skin changes due to chronic exposure to nonionizing radiation; L81.4 Other melanin hyperpigmentation; Z85.828 Personal history of other malignant neoplasm of skin | CPT/HCPCS: 17000; 99214 ==

== ENCOUNTER 2024-10-20 14:44 | Outpatient (CLI) | payer MEDICARE, MEDICAID, SELFPAY ==
--- NOTE | 2024-10-20 14:47 | XR_ITS ---
WS: [email or web address] SCREENING DEXA SCAN [employer] CLINICAL INFORMATION: POSTMENOPAUSAL COMPARISON: None. FINDINGS: The L1-L4 bone mineral density measures 1.043 g/cm2. This corresponds to a T score score of -1.1 and Z score of -0.4. Left femoral neck bone mineral density measures 0.717 g/cm2. This corresponds to a T score of -2.3 and Z score of -1.7. Right femoral neck bone mineral density measures 0.674 g/cm2. This corresponds to a T score -2.6of and Z score of -2.1. Mean femoral neck bone mineral density measures 0.696 g/cm2. This corresponds to a T score of -2.5 and Z score of -1.9. XR/XR DEXA axial skeleton* [id number] IMPRESSION: Osteopenia lumbar spine. Osteoporosis femoral necks. Patient's FRAX calculated 10 year probability for major osteoporotic fracture i s 43.4% and osteoporotic hip fracture is 26.2%.
== END 2024-10-20 14:45 | disposition home or self-care (01) ==
PROVIDERS: PCP Family Medicine; Visit Provider Family Medicine
DX: Z78.0 Asymptomatic menopausal state (principal); M85.88 Other specified disorders of bone density and structure, other site; M81.0 Age-related osteoporosis without current pathological fracture
CPT/HCPCS: 77080

== ENCOUNTER → 2024-12-14 11:08 | Outpatient (BNVA) | payer MEDICARE, MEDICAID, SELFPAY | PROVIDERS: PCP Family Medicine; Visit Provider Nurse Practitioner Family | DX: L57.8 Other skin changes due to chronic exposure to nonionizing radiation (principal); L81.4 Other melanin hyperpigmentation; L82.1 Other seborrheic keratosis; Z08 Encounter for follow-up examination after completed treatment for malignant neoplasm; Z85.828 Personal history of other malignant neoplasm of skin | CPT/HCPCS: 99213 ==

== ENCOUNTER 2025-01-16 10:31 | Outpatient (CLI) | payer MEDICARE, SELFPAY ==
--- NOTE | 2025-01-16 10:42 | XR_ITS ---
WS: [id number] SACRUM AND COCCYX TECHNIQUE: AP angled and lateral views. HISTORY: SACRAL FX/PUBIC BONE FX COMPARISON: None available. Bony sclerosis bilateral in the sacrum, RIGHT greater than LEFT from a healed or healing insufficiency fracture. Identified on this series is increased density and sclerosis in the LEFT parasymphyseal pubic bone. Consistent with a healing fracture. No displacement. No additional fractures are identified. Mild narrowing of the SI joints and hip joints. Extensive atherosclerotic plaque within the abdominal aorta. Diameter of the aorta is 3.6 cm. XR/XR sacrum coccyx min 2V [id number] IMPRESSION: 1. Healing LEFT parasymphyseal pubic fracture. 2. Healing sacral insufficiency fractures, RIGHT greater than LEFT. 3. Abdominal aortic aneurysm 3.6 cm.
--- NOTE | 2025-01-16 10:42 | XR_ITS ---
WS: [email or web address] PELVIS: 3 VIEWS. HISTORY: SACRAL FX/PUBIC BONE FX COMPARISON: 12/13/2016 Osteopenia. Moderate narrowing of the SI joints. There is mild sclerosis within the sacrum, RIGHT greater than LEFT which may be from a prior insufficiency fracture which has healed. No acute fractures are identified. Mild narrowing of the hip joints. Long-term stability soft tissue calcification above the LEFT femoral neck. Vascular calcifications. Calcification adjacent to the RIGHT greater trochanter. May be from trochanteric bursitis. XR/XR pelvis min 3V [id number] IMPRESSION: No acute pelvic fractures identified. Sclerosis involving the sacrum, RIGHT greater than LEFT may be from a prior hea led sacral insufficiency fracture. No acute fracture identified by radiograph. If further evaluation for fracture is necessary consider CT evaluation.
== END 2025-01-16 10:32 | disposition home or self-care (01) ==
PROVIDERS: PCP Nurse Practitioner Family; Visit Provider Nurse Practitioner Family
DX: S32.599D Other specified fracture of unspecified pubis, subsequent encounter for fracture with routine healing (principal); S32.10XD Unspecified fracture of sacrum, subsequent encounter for fracture with routine healing; X58.XXXD Exposure to other specified factors, subsequent encounter; I71.40 Abdominal aortic aneurysm, without rupture, unspecified; R93.7 Abnormal findings on diagnostic imaging of other parts of musculoskeletal system; M46.1 Sacroiliitis, not elsewhere classified; M25.851 Other specified joint disorders, right hip; M25.852 Other specified joint disorders, left hip; I70.0 Atherosclerosis of aorta
CPT/HCPCS: 72190; 72220